=== PATIENT | male | born 1960 | race Caucasian/White ===

== ENCOUNTER 2019-04-08 08:28 | Outpatient (CLI) | payer OTHER ==
--- NOTE | 2019-04-08 11:38 | MRI ---
MRI Pelvis W WO Con History: C 61 malignant neoplasm of prostate. Elevated PSA Comparison: None available Findings: Multiplanar multisequence MRI of the prostate was performed prior to and after the intraven ous administration of contrast. The exam was reviewed on an independent 3-D workstation. Prostate: Prostate measures 4.6 x 4.4 x 5.3 cm for a volume of 53.65 mL. Peripheral zone: No focal area of markedly hyperintense signal on diffusion or markedly hypointense s ignal ADC. Transitional zone: Multiple circumscribed hypointense encapsulated nodules. Prostatic capsule: Intact Neurovascular bundles: Intact Seminal vesicles: Intact Rectal prostatic angle: Intact Lymph nodes: No adenopathy Bones: On the large field of view T1 images there are no focal areas of marrow signal replacement. Intrapelvic soft tissues: Mild diverticular disease of the sigmoid colon. IMPRESSION: 1. PI-RADS 2: Low (clinically significant prostate cancer is unlikely to be present). 2. Prostatic volume of 53.65 mL. 3. Intact neurovascular bundles and prostatic capsule. 4. No evidence of lymphatic nor osseous metastatic disease.
[2019-04-08] MEDS ORDERED: Gadobenate Dimeglumine 529 MG/1 ML (20ML VIAL) ONE (16:32)
== END 2019-04-08 08:29 | disposition home or self-care (01) ==
LOC: TBSIIMAG 08:28
PROVIDERS: ATTEND Urology
DX: C61 Malignant neoplasm of prostate (principal)
CPT/HCPCS: 72197; A9577

== ENCOUNTER 2019-09-02 15:48 | Outpatient (CLI) | payer BC ==
[2019-09-02 16:46] LABS: Bacteria/HPF None Seen HPF (None Seen); Bilirubin Negative (Negative); Blood, Urine Negative (Negative); Clarity Clear (Clear); Glucose, Urine (Dipstick) Normal (Negative); Leukocyte Negative Leu/uL (Negative); Nitrite Negative (Negative); Protein, Urine (Dipstick) Negative (Neg-Trace); RBC/HPF 0-3 HPF (0-3); Squamous Epithelial None Seen HPF (0-3); Urobilinogen Normal mg/dL (Less than 2); WBC/HPF 0-3 HPF (0-3)
[2019-09-02 16:47] LABS: Mean Corpuscular HGB CONC 33.8 g/dL (32.0-36.0); Mean Corpuscular Hemoglobin 31.5 pg (27.0-31.0); Mean Platelet Volume 6.9 fL (7.4-10.4); Platelet Count 301 thou/uL (130-400); RBC Distribution Width 11.4 % (11.5-14.5); Red Blood Cell (RBC) Count 4.77 mill/uL (4.70-6.10); White Blood Cell (WBC) Count 6.7 thou/uL (4.8-10.8)
[2019-09-02 16:53] LABS: INR-International Normal Ratio 0.9; PTT 30.8 SEC (22.9-36.1); Prothrombin Time 11.7 SEC (12.0-14.7)
[2019-09-02 17:26] LABS: Anion Gap 12 mmol/L (10-20); BUN (Urea Nitrogen) 15 mg/dL (8.4-25.7); Calc. Creatinine Clearance 0 mL/min (70-130); Calcium 9.6 mg/dL (7.8-10.44); Carbon Dioxide 25 mmol/L (22-29); Chloride 107 mmol/L (98-107); Estimated GFR-MDRD 65; Glucose 95 mg/dL (70-105); Potassium 4.4 mmol/L (3.5-5.1); Sodium 140 mmol/L (136-145)
--- NOTE | 2019-09-03 11:11 | EKG ---
Test Reason : Blood Pressure : / mmHG Vent. Rate : 084 BPM Atrial Rate : 084 BPM P-R Int : 122 ms QRS Dur : 088 ms QT Int : 362 ms P-R-T Axes : 074 063 078 degrees QTc Int : 427 ms Normal sinus rhythm with sinus arrhythmia Possible Anterior infarct , age undetermined Abnormal ECG No previous ECGs available Confirmed by DR. Bipin WEST ([id number]) on 09/03/2019 11:11:18 AM Referred By: ABELARDO Confirmed By:DR. Bipin WEST
== END 2019-09-02 15:49 | disposition home or self-care (01) ==
LOC: LABBT 15:48
PROVIDERS: ATTEND Urology
DX: Z01.818 Encounter for other preprocedural examination (principal); C61 Malignant neoplasm of prostate; Z12.5 Encounter for screening for malignant neoplasm of prostate; N40.1 Benign prostatic hyperplasia with lower urinary tract symptoms; R35.0 Frequency of micturition; R39.15 Urgency of urination; F41.9 Anxiety disorder, unspecified; N52.9 Male erectile dysfunction, unspecified; R10.9 Unspecified abdominal pain
CPT/HCPCS: 80048; 81001; 85027; 85610; 85730; 87086; 93005; 93010

== ENCOUNTER 2019-09-16 05:57 | Day surgery (SDC) | payer BC ==
[2019-09-16] MEDS ORDERED: Levofloxacin 500 mg/D5W 100 ml Premix Bag ONE (06:11)
[2019-09-16] MEDS ORDERED: Midazolam HCl 2 mg/2 ml Vial ONE (07:28)
[2019-09-16] MEDS ORDERED: Oxybutynin 5 MG TAB ONE (09:00)
[2019-09-16] MEDS ORDERED: Hyoscyamine Sulfate SL 0.125 mg Tablet ONE (09:06)
[2019-09-16] MEDS ORDERED: Hyoscyamine Sulfate SL 0.125 mg Tablet SL SCH (09:15)
[2019-09-16] MEDS ORDERED: Fentanyl 100 MCG/2 ML VIAL ONE (10:45)
--- NOTE | 2019-09-16 12:20 | OP ---
DATE OF PROCEDURE: 09/16/2019 PREOPERATIVE DIAGNOSES: 1. A 58-year-old male with clinical T1c prostate cancer, initially diagnosed on 16/08, on active surveillance. 2. History of benign prostatic hyperplasia with severe lower urinary tract symptoms. IPSS score of 31. POSTOPERATIVE DIAGNOSES: 1. A 58-year-old male with clinical T1c prostate cancer, initially diagnosed on 16/08, on active surveillance. 2. History of benign prostatic hyperplasia with severe lower urinary tract symptoms. IPSS score of 31. PROCEDURES PERFORMED: Cystoscopy, UroLift implant x7. ANESTHESIA: LMA. COMPLICATIONS: None apparent. DRAINS: 20-Palestinian 3-way Foster catheter to gravity leg bag. SPECIMEN: None. ESTIMATED BLOOD LOSS: Minimal. DISPOSITION: To recovery room in stable condition. INDICATIONS FOR THE PROCEDURE AND HISTORY: Mr. Marshall is a pleasant 58-year-old male, who is followed [facility] for [facility] surveillance for prostate cancer. His recent biopsy in April 2019 demonstrated no evidence of malignancy, he does have severe BPH due to bilobar hyperplasia of the prostate and has been on dual medical therapy and desires to proceed with BPH surgery. He would prefer less invasive approach , due to sexual side effects and presents today for UroLift. Risks and complications of the procedure were reviewed with him in detail including, but not limited to, bleeding, pain, infection, injury to adjacent organs urosepsis, chronic pain, possible extrusion, migration of implant resulting in urolithiasis warranting secondary treatment, alternative options including TURP, medical observation also discussed. He desires to proceed with UroLift. DESCRIPTION OF PROCEDURE: After an informed consent was signed, the patient was taken to the operating room, placed in a dorsal lithotomy position with the genital area prepped and draped in the usual surgical sterile fashion. A 21-Palestinian cystoscope was utilized to stage the urethra which demonstrated bilobar hyperplasia with severe obstruction. There was a high median bar, suggestive of a very early median lobe. However, there was no significant intravesical median lobe per se. The UOs were identified in normal anatomical location, kept out of harm's way throughout the whole procedure. Trabeculated bladder consistent with chronic outlet obstruction appreciated. At this time, we transitioned to a UroLift scope with a visual obturator, staging the urethra. Even prior to putting the implant, he does have inflamed prostatic urethra which was oozy in nature. UroLift implant was placed on the left side first. Attention paid approximately a [id number] half proximal to the bladder neck. A total of three implants on the left was placed. We did place a seventh one on the left lateral lobe. At the end of the procedure, he had an anterior channel that was open. He did have oozing from the prostate hindering visualization. Therefore, I did switch to a 26-Palestinian resectoscope to visualize the prostatic urethra and stage. He had an anterior channel that was created from the UroLift with compression of the obstructing lateral lobes. Although, he had some apical lobes, anterior channel was visualized and the tissue at the apex was not treated as he had an anterior channel created by the UroLift. A 20-Palestinian 3-way Foster catheter was placed and I will monitor for degree of hematuria. If the hematuria is not of significant issue, he will be discharged with indwelling Foster catheter overnight and for a voiding trial tomorrow. At the end of the procedure, he did have an anterior channel. However, if he has persistent obstructive urinary symptoms of concern, restaging cystoscopy and perhaps treating his apical lobes at a later date will be addressed. Job ID: [id number] MTDD
[2019-09-16] MEDS ORDERED: traMADol HCl 50 MG TAB ONE (13:52)
== END 2019-09-16 13:55 | disposition home or self-care (01) ==
LOC: SDC 05:57
PROVIDERS: ATTEND Urology
PROC: 0T7D8DZ Dilation of Urethra with Intraluminal Device, Via Natural or Artificial Opening Endoscopic (ICD-10-PCS; principal; 2019-09-16)
DX: N40.1 Benign prostatic hyperplasia with lower urinary tract symptoms (principal); C61 Malignant neoplasm of prostate; I10 Essential (primary) hypertension; K58.9 Irritable bowel syndrome, unspecified; F32.9 Major depressive disorder, single episode, unspecified; F41.9 Anxiety disorder, unspecified; F17.290 Nicotine dependence, other tobacco product, uncomplicated; Z79.899 Other long term (current) drug therapy; Z88.5 Allergy status to narcotic agent
CPT/HCPCS: C1889; J1956; J2250; J3010

== ENCOUNTER 2020-04-22 14:48 | Outpatient (CLI) | payer BC ==
[~2020-04-22 14:48] MED LIST: Magnevist 469MG/ML 20 ML VIAL ONE
--- NOTE | 2020-04-22 16:13 | MRI ---
MRI Pelvis W WO Con History: Elevated PSA. Malignant neoplasm of prostate Comparison: None. Findings: Multiplanar multisequence MRI of the prostate was performed prior to and after the intraven ous administration of contrast. The exam was reviewed on an independent 3-D workstation. The prostate measures 4.9 x 4.8 x 5.5 cm for a volume of 64.9 mL. Susceptibility along the prostatic urethra from prior Urolift procedure. Peripheral zone: No abnormal signal on the high B-value DWI nor ADC. Transitional zone: Circumscribed nodules. No abnormal lentiform low T2 signal. Neurovascular bundles: Intact Prostatic capsule: Intact Lymph nodes: No adenopathy. Bones: No abnormal signal replacement of the marrow on the T1 weighted sequence. Intrapelvic soft tissues: Moderate diverticular disease sigmoid colon. Impression: 1. PI-RADS Category 2: Low (clinically significant prostate cancer is unlikely to be present). 2. Intact neurovascular bundles and prostatic capsule. 3. No evidence for local regional osseous or leoncio metastatic disease.
== END 2020-04-22 14:49 | disposition home or self-care (01) ==
LOC: TBSIIMAG 14:48
PROVIDERS: ATTEND Urology
DX: C61 Malignant neoplasm of prostate (principal)
CPT/HCPCS: 72197; A9579